=== PATIENT | female | born 1950 | race Caucasian/White ===

== ENCOUNTER 2017-07-19 07:59 | Inpatient (IN) | payer OTHER ==
[2017-07-12 13:53] VITALS: BP 143/81
[~2017-07-19] VITALS: Ht 162.6 cm; Wt 90.7 kg
[~2017-07-19 07:59] MED LIST: ALBU8.5H8 INH; AMLO5TAB2 PO; ASCO100019 PO; BUPIVACAINE/PF 0.5% ONE; CHOL200024 PO; DICL35CA PO; EPINEPHRINE 1 MG/ML, 1ML ONE; FISH1CAP PO; GLUC1CAP13 PO; HYDR200T PO; MULT-658 PO; THROMBIN 20,000 UNIT VIAL TP ONE; TRANEXAMIC ACID 100 MG/ML, 10ML ONE; TRIA15CR3 TP; VANCOMYCIN 1,000 MG ONE; areds PO; biotin PO
[2017-07-19] MEDS ORDERED: FENTANYL PF 100 MCG/2ML ONE ×4 (08:53→12:41)
[2017-07-19] MEDS ORDERED: MIDAZOLAM 1 MG/ML, 2ML ONE (08:53)
[2017-07-19] MEDS ORDERED: PROPOFOL 10 MG/ML, 20ML ONE (08:54)
[2017-07-19] MEDS ORDERED: CEFAZOLIN 1,000 MG ONE ×2 (08:54)
[2017-07-19] MEDS ORDERED: ROCURONIUM 10 MG/ML ONE (08:54)
[2017-07-19] MEDS ORDERED: ROPIvacaine/PF 0.5%, 30 ML ONE (08:55)
[2017-07-19] MEDS ORDERED: ONDANSETRON 2MG/ML, 2ML ONE ×2 (08:56→15:24)
[2017-07-19] MEDS ORDERED: DEXAMETHASONE 4 MG/ML, 1ML ONE ×3 (08:56→08:57)
[2017-07-19] MEDS ORDERED: VANCOMYCIN PER PHARMACY MC PRN (09:30)
[2017-07-19] MEDS ORDERED: LIDOCAINE 1%, 2ML SQ PRN (09:30)
[2017-07-19] MEDS ORDERED: LIDOCAINE 1%, 2ML ONE (09:55)
[2017-07-19] MEDS ORDERED: LACTATED RINGERS 1,000 ML IV SCH (10:00)
[2017-07-19] MEDS ORDERED: LABETALOL 5MG/ML, 20ML IV PRN (10:30)
[2017-07-19] MEDS ORDERED: MEPERIDINE/PF 25MG/0.5ML IVPush PRN (10:30)
[2017-07-19] MEDS ORDERED: ALBUTEROL SULFATE 2.5 MG/3 ML NPPB PRN (10:30)
[2017-07-19] MEDS ORDERED: OXYcodone 5 MG/5 ML ORAL.SOL UDC PO PRN (10:30)
[2017-07-19] MEDS ORDERED: ONDANSETRON 2MG/ML, 2ML IVPush PRN (10:30)
[2017-07-19] MEDS ORDERED: VANCOMYCIN 1,700 MG in SODIUM CHLORIDE 0.9% 250 ML IV ONE (10:30)
[2017-07-19] MEDS ORDERED: hydrALAzine 20 MG/ML, 1ML IV PRN (10:30)
[2017-07-19] MEDS ORDERED: PROMETHAZINE 25 MG/ML, 1ML IV PRN (10:30)
[2017-07-19] MEDS ORDERED: ACETAMINOPHEN 325 MG TABLET PO PRN (10:30)
[2017-07-19] MEDS ORDERED: NEOSTIGMINE 1 MG/ML, 10ML ONE (11:05)
[2017-07-19] MEDS ORDERED: GLYCOPYRROLATE 0.4 MG/2 ML, 2ML ONE ×2 (11:05)
[2017-07-19] MEDS ORDERED: MEPERIDINE/PF 25MG/0.5ML ONE (12:14)
[2017-07-19] MEDS ORDERED: HYDROmorphone 1 MG/ML, 1ML ONE ×2 (12:41→13:07)
[2017-07-19] MEDS: HYDROmorphone 1 MG/ML, 1ML IV PRN ×6 (12:45→13:30)
[2017-07-19] MEDS: FENTANYL PF 100 MCG/2ML IV PRN ×2 (12:48→12:55)
[2017-07-19] MEDS ORDERED: TRANEXAMIC ACID 100 MG/ML, 10ML IVPB STA (13:43)
[2017-07-19] MEDS ORDERED: TRANEXAMIC ACID 1,000 MG in SODIUM CHLORIDE 0.9% 100 ML IV ONE (14:00)
[2017-07-19] MEDS ORDERED: DIAZEPAM 5 MG TABLET PO PRN (15:30)
[2017-07-19] MEDS ORDERED: SENNA/DOCUSATE TABLET PO PRN (15:30)
[2017-07-19] MEDS ORDERED: PROMETHAZINE 25 MG/ML, 1ML IM PRN (15:30)
[2017-07-19] MEDS ORDERED: PROMETHAZINE 25 MG SUPP PR PRN (15:30)
[2017-07-19] MEDS ORDERED: DIPHENHYDRAMINE 25 MG CAPSULE PO PRN (15:30)
[2017-07-19] MEDS ORDERED: ONDANSETRON ODT 4 MG PO PRN (15:30)
[2017-07-19] MEDS ORDERED: KETOROLAC 30 MG/1 ML IV PRN (15:30)
[2017-07-19] MEDS ORDERED: BISACODYL 10 MG SUPP PR PRN (15:30)
[2017-07-19] MEDS ORDERED: morphine SULFATE 10 MG/ML, 1ML IV PRN (15:30)
[2017-07-19] MEDS ORDERED: LORazepam 1MG TABLET PO PRN (15:30)
[2017-07-19] MEDS ORDERED: MAGNESIUM HYDROXIDE 8%, 30ML UDC PO PRN (15:30)
[2017-07-19] MEDS ORDERED: SCOPOLAMINE 1MG PATCH TD SCH (15:30)
[2017-07-19] MEDS ORDERED: ALUMINUM/MAG/SIMETHICONE 30 ML UDC PO PRN (15:30)
[2017-07-19] MEDS ORDERED: LORazepam 2 MG/ML, 1ML IV PRN (15:30)
[2017-07-19] MEDS ORDERED: ZOLPIDEM 5MG TABLET PO PRN (15:30)
[2017-07-19] MEDS: ONDANSETRON 2MG/ML, 2ML IVPush PRN ×2 (15:30→19:50)
[2017-07-19] MEDS: OXYcodone IR 5MG TABLET PO PRN ×2 (15:55→19:50)
[2017-07-19] MEDS ORDERED: OXYcodone IR 5MG TABLET PO PRN (16:00)
[2017-07-19] MEDS ORDERED: ACETAMINOPHEN 500 MG TABLET PO PRN (16:00)
[2017-07-19] MEDS ORDERED: DEXAMETHASONE 4 MG/ML, 5ML IV PRN (16:30)
[2017-07-19] MEDS: D5%-0.45NACL+KCL 20MEQ 1,000 ML IV SCH (18:28)
[2017-07-19] MEDS: CLINDAMYCIN PMX 600MG/50ML 50 ML IVPB SCH (18:28)
[2017-07-19 19:35] VITALS: BP 111/66
[2017-07-19] MEDS ORDERED: HYDROXYCHLOROQUINE 200 MG TABLET PO SCH (21:00)
[2017-07-19] MEDS: PREGABALIN 75 MG CAPSULE PO SCH (22:04)
[2017-07-19] MEDS: DOCUSATE 100 MG CAPSULE PO SCH (22:04)
[2017-07-19] MEDS: ASCORBIC ACID 500 MG TABLET PO SCH (22:05)
[2017-07-19] MEDS: AMLODIPINE 5 MG TABLET PO SCH (22:05)
[2017-07-19 23:31] VITALS: BP 109/65
[2017-07-20] MEDS: ONDANSETRON 2MG/ML, 2ML IVPush PRN
[2017-07-20] MEDS: OXYcodone IR 5MG TABLET PO PRN ×7 (00:02→20:54)
[2017-07-20] MEDS: CLINDAMYCIN PMX 600MG/50ML 50 ML IVPB SCH (03:30)
[2017-07-20 03:54] VITALS: BP 113/65
[2017-07-20] MEDS: D5%-0.45NACL+KCL 20MEQ 1,000 ML IV SCH ×3 (04:30→20:55)
[2017-07-20 04:50] LABS: HEMATOCRIT 31.8 % (34.6-47.8); HEMOGLOBIN 10.9 g/dL (11.7-16.4)
[2017-07-20] MEDS: ASPIRIN 325 MG TABLET EC PO SCH ×2 (05:44→17:31)
[2017-07-20 06:52] VITALS: BP 116/67
[2017-07-20] MEDS: CHOLECALCIFEROL 1,000 UNIT TABLET PO SCH (08:55)
[2017-07-20] MEDS: MULTIVITAMIN 1 TABLET PO SCH (08:55)
[2017-07-20] MEDS ORDERED: AMLODIPINE 5 MG TABLET PO SCH (09:00)
[2017-07-20] MEDS: PREGABALIN 75 MG CAPSULE PO SCH ×2 (09:25→20:53)
[2017-07-20] MEDS: ASCORBIC ACID 500 MG TABLET PO SCH ×2 (09:25→20:53)
[2017-07-20] MEDS: DOCUSATE 100 MG CAPSULE PO SCH ×2 (09:25→20:53)
[2017-07-20 14:33] VITALS: BP 110/66
[2017-07-20] MEDS ORDERED: DIPHENHYDRAMINE 25 MG CAPSULE PO PRN (18:30)
[2017-07-20] MEDS ORDERED: ONDANSETRON ODT 4 MG PO PRN (18:30)
[2017-07-20] MEDS ORDERED: ACETAMINOPHEN 500 MG TABLET PO PRN (18:30)
[2017-07-20] MEDS ORDERED: ZOLPIDEM 5MG TABLET PO PRN (18:30)
[2017-07-20] MEDS ORDERED: BISACODYL 10 MG SUPP PR PRN (18:30)
[2017-07-20] MEDS ORDERED: SENNA/DOCUSATE TABLET PO PRN (18:30)
[2017-07-20] MEDS ORDERED: PROMETHAZINE 25 MG/ML, 1ML IM PRN (18:30)
[2017-07-20] MEDS ORDERED: MAGNESIUM HYDROXIDE 8%, 30ML UDC PO PRN (18:30)
[2017-07-20] MEDS ORDERED: ALUMINUM/MAG/SIMETHICONE 30 ML UDC PO PRN (18:30)
[2017-07-20 19:24] VITALS: BP 119/74
[2017-07-20] MEDS: AMLODIPINE 5 MG TABLET PO SCH (20:53)
[2017-07-21] MEDS: OXYcodone IR 5MG TABLET PO PRN ×4 (00:08→10:20)
[2017-07-21 01:13] VITALS: BP 121/68
[2017-07-21] MEDS ORDERED: ASPI-650 PO (01:50)
[2017-07-21] MEDS ORDERED: CEPH-368 PO (01:51)
[2017-07-21] MEDS ORDERED: OXYC10TA6 PO (01:52)
[2017-07-21 05:29] LABS: HEMATOCRIT 31.9 % (34.6-47.8); HEMOGLOBIN 10.9 g/dL (11.7-16.4)
[2017-07-21] MEDS: ASPIRIN 325 MG TABLET EC PO SCH (06:07)
[2017-07-21] MEDS: CHOLECALCIFEROL 1,000 UNIT TABLET PO SCH (08:31)
[2017-07-21] MEDS: DOCUSATE 100 MG CAPSULE PO SCH (08:31)
[2017-07-21] MEDS: MULTIVITAMIN 1 TABLET PO SCH (08:31)
[2017-07-21] MEDS: ASCORBIC ACID 500 MG TABLET PO SCH (08:31)
[2017-07-21] MEDS: PREGABALIN 75 MG CAPSULE PO SCH (08:31)
[2017-07-21 08:52] VITALS: BP 114/68
[2017-07-21] MEDS: D5%-0.45NACL+KCL 20MEQ 1,000 ML IV SCH (10:30)
[2017-07-21 13:16] VITALS: BP 108/65
== END 2017-07-21 13:20 | disposition home or self-care (01) | DRG 470 ==
LOC: ORIP 08:51 → 4NOR 14:43
PROVIDERS: ADMIT Orthopaedic Surgery Orthopaedic Surgery of the Spine; ATTEND Orthopaedic Surgery Orthopaedic Surgery of the Spine
PROC: 0SRC0J9 Replacement of Right Knee Joint with Synthetic Substitute, Cemented, Open Approach (ICD-10-PCS; principal; 2017-07-19 10:30)
DX: M17.31 Unilateral post-traumatic osteoarthritis, right knee (principal); Z88.0 Allergy status to penicillin; Z88.6 Allergy status to analgesic agent; Z88.8 Allergy status to other drugs, medicaments and biological substances
CPT/HCPCS: 36415; 85014; 85018; C1713; J0171; J0690; J1100; J1170; J2175; J2250; J2405; J2704; J2710; J2795; J3010; J3370; J3490; C1776; J3480; J7050; J7120